=== PATIENT | male | born 1950 | race Caucasian/White ===

== ENCOUNTER → 2024-11-19 | Day surgery (SDC) | payer MEDICARE, OTHER ==
[2024-11-11 14:28] LABS: BASOPHILS % 1.0 % (0.0-1.0); EOSINOPHILS % 2.2 % (0.0-6.0); LYMPHOCYTES % 30.0 % (18.0-39.1); MONOCYTES % 11.2 % (4.4-11.3); NEUTROPHILS % 55.2 % (38.7-80.0); RED CELL DISTRIBUTION WIDTH 13.1 % (11.7-14.4)
[~2024-11-19] MED LIST: ACETAMINOPHEN 1000 MG/100 ML 100 ML IV ONE; ATENOLOL50 MG PO; BUPIVACAINE LIPOSOME/PF 266 MG/20 ML IJ ONE; CEFAZOLIN SODIUM 2 GM ONE; DEXAMETHASONE SOD PHOS INJ 4 MG/ML SDV ONE; ELIQUIS5 MG PO; FENTANYL CITRATE/PF 100MCG/2 ML INJ ONE; FLOMAX0.4 MG PO; LABETALOL HCL 20 ML ONE; LACTATED RINGER'S 1,000 ML ONE; LIDOCAINE HCL 2% LOCAL INJ 5 ML SDV VIAL INJ ONE; MULTAQ400 MG PO; ONDANSETRON HCL INJ 2MG/ML 2ML 2 MG/ML VIAL ONE; PROPOFOL IV EMULSION 10 MG/ML 20 ML VIAL ONE; ROCURONIUM BROMIDE 1 ML IV ONE; SUCCINYLCHOLINE CHLORIDE 20 MG/ML 10ML VIAL ONE; SUGAMMADEX SODIUM 200 MG/2 ML VIAL IV ONE; ULTRAM 50MG50 MG PO; VITAMIN B121000 MCG PO; VITAMIN D325 MCG PO
[2024-11-19 14:50] VITALS: TEMP 97.4
[2024-11-19] MEDS: FENTANYL CITRATE/PF 100MCG/2 ML INJ ONE (14:53)
[2024-11-19] MEDS: LABETALOL HCL 5 MG/ML 20ML VIAL IV ONE (16:07)
[2024-11-19] MEDS: HYDRALAZINE HCL 20 MG/ML VIAL ONE (17:05)
[2024-11-19 17:20] VITALS: BP 166/91; PULSE 78; RESP 16; O2SAT 98
== END | disposition home or self-care (01) ==
LOC: OR 10:22
PROVIDERS: ATTEND Podiatrist Foot & Ankle Surgery
DX: M20.21 Hallux rigidus, right foot (principal); M20.41 Other hammer toe(s) (acquired), right foot; I10 Essential (primary) hypertension; I48.91 Unspecified atrial fibrillation; Z01.810 Encounter for preprocedural cardiovascular examination; Z01.812 Encounter for preprocedural laboratory examination; Z01.818 Encounter for other preprocedural examination; Z79.02 Long term (current) use of antithrombotics/antiplatelets; Z79.899 Other long term (current) drug therapy
CPT/HCPCS: 20902; 28285 ×4; 28750; 36415; 71046; 85025; 93005; C1713 ×5; C1734; C1762; C1830; J0131; J0330; J0360; J0666; J1100; J2003; J2405; J2704; J3010; J3490; J7121